=== PATIENT | male | born 1940 | race Asian ===

== ENCOUNTER 2017-12-28 09:24 | Emergency (ER) | payer MEDICARE ==
[~2017-12-28] VITALS: Ht 162.6 cm; Wt 59.0 kg
[2017-12-28 09:37] VITALS: Ht 162.6 cm; Wt 59.0 kg
[2017-12-28 11:16] LABS: PLATELET COUNT 145 x10^3mcL (130-400)
[2017-12-28 11:50] VITALS: BP 128/80
[2017-12-28 11:54] LABS: CALCIUM 8.7 mg/dL (8.5-10.1); CARBON DIOXIDE 21.9 mmol/L (21-32); CHLORIDE SERUM 104 mmol/L (98-107); CREATININE SERUM 2.1 mg/dL (0.7-1.3); GLUCOSE SERUM 117 mg/dL (74-106); POTASSIUM SERUM 4.5 mmol/L (3.5-5.1); SODIUM SERUM 138 mmol/L (136-145)
[2017-12-28 12:05] LABS: ALBUMIN 3.5 g/dL (3.4-5.0); ALKALINE PHOSPHATASE 78 U/L (46-116); ALT/SGPT 24 U/L (16-63); AMYLASE 92 U/L (25-115); AST/SGOT 29 U/L (15-37); BILIRUBIN TOTAL 0.81 mg/dL (0.20-1.00); CHOLESTEROL 168 mg/dL (<200); LIPASE 162 IU/L (73-393); MAGNESIUM 2.2 mg/dL (1.8-2.4); T4(THYROXINE) 6.6 ug/dL (4.7-13.3); TOTAL PROTEIN, SERUM 7.2 g/dL (6.4-8.2)
[2017-12-28 12:26] LABS: HDL CHOLESTEROL 88 mg/dL (40-60)
== END 2017-12-28 11:50 | disposition short-term general hospital (02) ==
LOC: ED 09:24
PROVIDERS: Emergency Medicine
DX: I63.9 Cerebral infarction, unspecified (principal); G81.91 Hemiplegia, unspecified affecting right dominant side; R47.01 Aphasia; I10 Essential (primary) hypertension; E11.9 Type 2 diabetes mellitus without complications
CPT/HCPCS: 82962; 83880; G0480; J2060; Q0092

== ENCOUNTER 2019-05-19 10:01 | Emergency (ER) | payer MEDICARE ==
[~2019-05-19] VITALS: Ht 167.6 cm; Wt 52.2 kg
[2019-05-19 10:02] VITALS: Ht 167.6 cm; Wt 52.2 kg
[2019-05-19 10:39] LABS: BASOPHIL % 0.1 % (0-2); PLATELET COUNT 184 x10^3mcL (130-400)
[2019-05-19 10:40] LABS: RED CELL DISTRIBUTION WIDTH 16.3 % (11.5-14.5)
[2019-05-19] MEDS ORDERED: NOR5 PO (10:48)
[2019-05-19] MEDS ORDERED: LASIX40 MG PO (10:48)
[2019-05-19] MEDS ORDERED: LIPI20 PO (10:49)
[2019-05-19] MEDS ORDERED: COUMADIN1 MG PO (10:49)
[2019-05-19] MEDS ORDERED: PROGRAF1 MG PO (10:49)
[2019-05-19] MEDS ORDERED: NATURAL IRON65 MG PO (10:50)
[2019-05-19 11:14] LABS: ALBUMIN 3.5 g/dL (3.4-5.0); ALKALINE PHOSPHATASE 91 U/L (46-116); ALT/SGPT 28 U/L (16-63); AST/SGOT 24 U/L (15-37); BILIRUBIN TOTAL 1.02 mg/dL (0.20-1.00); CALCIUM 8.9 mg/dL (8.5-10.1); CARBON DIOXIDE 23.6 mmol/L (21-32); CHLORIDE SERUM 102 mmol/L (98-107); CREATININE SERUM 2.3 mg/dL (0.7-1.3); GLUCOSE SERUM 103 mg/dL (74-106); POTASSIUM SERUM 4.2 mmol/L (3.5-5.1); SODIUM SERUM 137 mmol/L (136-145); TOTAL PROTEIN, SERUM 7.5 g/dL (6.4-8.2)
[2019-05-19 13:32] VITALS: BP 147/64
== END 2019-05-19 13:33 | disposition short-term general hospital (02) ==
LOC: ED 10:01
PROVIDERS: Emergency Medicine
DX: I11.0 Hypertensive heart disease with heart failure (principal); I50.9 Heart failure, unspecified; J18.9 Pneumonia, unspecified organism; J96.01 Acute respiratory failure with hypoxia; I48.91 Unspecified atrial fibrillation
CPT/HCPCS: 83880; J1940; J1956; Q0092